=== PATIENT | female | born 1990 | race African-American/Black ===

== ENCOUNTER 2017-10-22 04:25 | Emergency (ER) | payer MEDICAID ==
[~2017-10-22] VITALS: Ht 175.3 cm; Wt 50.8 kg
[2017-10-22] MEDS ORDERED: IRON (04:36)
[2017-10-22] MEDS ORDERED: PRENATALS (04:36)
--- NOTE | 2017-10-22 04:44 | NUR ---
Dr. Chirinos at bedside for MSE.
[2017-10-22] MEDS ORDERED: ONDANSETRON ODT 4 MG TAB.RAPDIS ONE (04:59)
[2017-10-22] MEDS ORDERED: ONDANSETRON ODT 4 MG TAB.RAPDIS SL ONE (05:00)
[2017-10-22 05:09] LABS: *BILIRUBIN,URIN NEGATIVE (NEGATIVE); *BLOOD, URINE NEGATIVE (NEGATIVE); *COLOR,URINE YELLOW (YELLOW); *KETONES,URINE NEGATIVE (NEGATIVE); *PROTEIN,URINE NEGATIVE (NEGATIVE); *UROBILINOGEN,URINE 0.2 E.U./dl (NORMAL); LEUKOCYTE ESTERASE ,URINE NEGATIVE (NEGATIVE); NITRITE, URINE NEGATIVE (NEGATIVE); UGLUCOSE NEGATIVE (NEGATIVE)
[2017-10-22 05:10] LABS: *CLARITY,URINE HAZY (CLEAR)
[2017-10-22 05:17] LABS: BACTERIA,URINE FEW /HPF (NONE SEEN); RBC,URINE 0-3 /HPF (0-3); SQUAMOUS EPITHELIAL CELL,UR FEW /HPF (NONE SEEN); URINE AMORPHOUS PHOSPHATES MODERATE /HPF; WBC,URINE 0-3 /HPF (0-3)
[2017-10-22 05:18] LABS: *URINE HCG, QUAL POSITIVE (NEGATIVE); MUCUS,URINE MODERATE /LPF (0-FEW)
--- NOTE | 2017-10-22 05:21 | NUR ---
Patient discharged to home in stable conditon. Written and verbal after care instructions given. Patient verbalizes understanding of instructions. Pt ambulated out of ER with steady gait, no acute signs of distress, VSS, all belongings taken.
[2017-10-22 05:23] VITALS: BP 116/64
== END 2017-10-22 05:23 | disposition home or self-care (01) ==
LOC: ER 04:27
DX: O21.9 Vomiting of pregnancy, unspecified (principal); F12.10 Cannabis abuse, uncomplicated; Z88.6 Allergy status to analgesic agent; Z3A.01 Less than 8 weeks gestation of pregnancy
CPT/HCPCS: 81001; 84703; 99284; A4663; Q0162